=== PATIENT | female | born 1960 | race Caucasian/White ===

== ENCOUNTER 2024-11-19 17:38 | Emergency (ER) | payer OTHER ==
[2024-11-19 18:08] VITALS: TEMP 97.7
[2024-11-19 18:27] LABS: BASOPHIL % 0.9 % (0.1-1.2); Basophil (Absolute #) 0.07 x10^3/uL (0.01-0.08); Eosinophil % 3.7 % (0.7-5.8); Eosinophil (Absolute #) 0.29 x10^3/uL (0.04-0.36); Hematocrit 40.3 % (34.1-44.9); Hemoglobin 13.2 g/dL (11.2-15.7); IMMATURE GRAN # 0.03 x10^3u/L (0.001-0.031); IMMATURE GRAN % 0.4 % (0.001-0.429); Lymphocyte (Absolute #) 1.91 x10^3/uL (1.18-3.74); Lymphocytes % 24.1 % (19.3-51.7); Mean Cell Volume 98.5 fL (79.4-94.8); Mean Corpuscular Hemoglobin 32.3 pg (25.6-32.2); Mean Corpuscular Hgb Concent. 32.8 g/dL (32.2-35.5); Mean Platelet Volume 10.9 fL (9.4-12.3); Monocyte (Absolute #) 0.64 x10^3/uL (0.24-0.86); Monocytes % 8.1 % (4.7-12.5); Neutrophil % 62.8 % (34.0-71.1); Platelet Count 226 x10^3/uL (182-369); Red Blood Count 4.09 x10^6/uL (3.93-5.22); Red Cell Distribution Width 14.8 % (11.7-14.4); White Blood Count 7.9 x10^3/uL (3.98-10.04)
--- NOTE | 2024-11-19 18:27 | ERPHSYRPT ---
<LUCERO COUGHLIN. - Last Filed: 11/19/24 18:49> - History of Present Illness Time Seen by Provider: 11/19/24 18:00 Historian: patient Exam Limitations: no limitations Patient Subjective Stated Complaint: C/O "burning in my chest" all day today. Radiates into left shoulder at times. Denies N/V. Can't rate pain at this time. Patient can't remember what she was doing at the time of the initial start of her pain. Triage Nursing Assessment: Patient ambulated back to ER. She is alert and oriented. No SOB. HUERTAS WNL. Edema is present to BLE. Physician History: Patient's had burning in her left chest. Has been going on for about 3 days. She does not have any shortness of breath. She does not have any classic chest pain. She says that the pain goes to her left shoulder. She does have a cardiovascular history as well as a family history for cardiovascular disease.She has risk factors for coronary vascular disease. It does not seem that she is dyspneic. She does not really havePleuritic type pain. Taking a deep breath does not make it worse. Movement of the left arm in certain positions and palpation in the left anterior chest wall replicates the pain. She does not have dyspnea. She does not seem to have PE symptoms. Timing/Duration: day(s) (3) Quality: aching, burning Aspirin Treatment Today: no aspirin today Allergies/Adverse Reactions: amlodipine [From Norvasc] Allergy (Verified 11/19/24 17:53) amoxicillin Allergy (Verified 11/19/24 17:53) cephalexin [From Keflex] Allergy (Verified 11/19/24 17:53) Penicillins Allergy (Verified 11/19/24 17:53) sulfamethoxazole [From Bactrim] Allergy (Verified 11/19/24 17:53) trimethoprim [From Bactrim] Allergy (Verified 11/19/24 17:53) Home Medications: Aspirin EC 325 mg [Ecotrin 325 MG] 325 mg PO DAILY 11/19/24 [History] Carvedilol 3.125 mg [Coreg 3.125 MG] 3.125 mg PO BID 11/19/24 [History] Lisinopril 10 mg [Zestril 10 MG] 10 mg PO BID 11/19/24 [History] Hx Tetanus, Diphtheria Vaccination/Date Given: Yes Hx Influenza Vaccination/Date Given: Yes Immunizations Up to Date: Yes Travel Risk - International Travel Have you traveled outside of the country in past 3 weeks: No - Emerging Infectious Disease Are you exhibiting symptoms associated with any current EIDs: No - Review of Systems Constitutional: No Symptoms Eyes: No Symptoms Ears, Nose, & Throat: No Symptoms Respiratory: No Symptoms Abdominal/Gastrointestinal: No Symptoms Genitourinary Symptoms: No Symptoms Psychological: No Symptoms All Other Systems: Reviewed and Negative - Past Medical History Pertinent Past Medical History: Yes Cardiac History: Hypertension, Myocardial Infarction ([place]) 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 - Past Surgical History Past Surgical History: Yes Gastrointestinal: Cholecystectomy, Hemorrhoidectomy Female Surgical History: Tubal Ligation Other Surgical History: skull, tendonitis - Social History Smoking Status: Current every day smoker Drug Use: none - Social Determinants of Health Will the patient participate in the screening: Declined to provide - Physical Exam General Appearance: no apparent distress Eye Exam: PERRL/EOMI Respiratory Exam: chest tenderness (Left upper sternal), airway intact, other (Diminished breath sounds left mid chest), No respiratory distress Cardiovascular Exam: regular rate/rhythm, normal heart sounds Gastrointestinal/Abdomen Exam: soft, normal bowel sounds, No tenderness, No distention Back Exam: normal inspection, normal range of motion Extremity Exam: normal inspection, normal range of motion Neurologic Exam: alert, oriented x 3, cooperative, engineering specialist technician II-XII nml as tested Skin Exam: normal color, warm, dry SpO2: 98 - Course Nursing assessment & vital signs reviewed: Yes EKG Interpreted by Me: RATE, NORMAL AXIS, NORMAL INTERVALS, NORMAL QRS - Progress Progress: unchanged Air Movement: good Progress Note: I am going to do a cardiac workup on this patient although I think is musculoskeletal chest pain. She does not have any of the signs or symptoms of a pulmonary embolism. She is not tachycardic no respiratory distress. I am going to turn the patient over to Dr. Foreman she is coming on now. I have started a cardiac workup. Her EKG was done as interpreted by me normal sinus rhythm no ST or T changes and normal axis. 11/19/24 18:38 - Departure Departure Disposition: Home Clinical Impression: Chest wall pain, Mass of left lung, Infiltrate noted on imaging study Condition: Stable Critical Care Time: No Referrals: MIRTHA BECKFORD [Primary Care Provider, UNKNOWN] - Follow up/PCP as directed Instructions: Atypical Chest Pain, Pulmonary nodule, Chest Pain (DC) Additional Instructions: There is a lung mass or infiltrate which need further workup probably by CT scan with your Dr. - We will start z albina as discussed just in case there is infection or pneumonia. As discussed, this may or may not be a cuse for your symptoms and you have cardiac risk factors especially with prior heart attack, and even though EKG and troponin and D -dimer were negative, there still could be a cardiac condition evolving with a potential for serious complications and even so additional monitoring and work up are indicated for this as well. Return or call 911 meantime if Chest pain, short of breath, dizziness, or any other concerns. Prescriptions: Azithromycin 250 mg [Zithromax 250 MG TABLET] 250 mg PO ZPACK #6 tablet <JANE QURESHI - Last Filed: 11/19/24 20:32> - History of Present Illness Associated Symptoms: cough, No fever Prior Chest Pain/Cardiac Workup: heart attack Aspirin Treatment Today: 325 mg x 1, provided at home - Nursing Vital Signs Nursing Vital Signs: Initial Vital Signs Pulse Rate 65 11/19/24 17:53 Respiratory Rate 16 11/19/24 17:53 Blood Pressure 181/96 11/19/24 17:53 O2 Sat by Pulse Oximetry 98 11/19/24 17:53 Pain Scale Pain Intensity 0 - Radiology Exams Chest X-ray Interpretation: Interpreted by me, Infiltrates (left lung infiltrate or mass) Ordered Tests: Active Orders 24 hr Category Date Time Status EKG-ER Only STAT Care 11/19/24 18:05 Active CHEST 1 VIEW (PORTABLE) Stat Exams 11/19/24 18:06 Taken BLOOD CULTURE Stat Lab 11/19/24 18:06 Received CBC W DIFF Stat Lab 11/19/24 18:23 Completed CMP Stat Lab 11/19/24 18:23 Completed D-DIMER QUANTITATIVE Stat Lab 11/19/24 18:23 Completed Lactic Acid Stat Lab 11/19/24 18:05 Completed PROCALCITONIN Stat Lab 11/19/24 18:23 Completed TROPONIN Q4H Lab 11/19/24 18:23 Completed TROPONIN Q4H Lab 11/19/24 22:15 Ordered TROPONIN Q4H Lab 11/20/24 02:15 Ordered Lab/Rad Data: Laboratory Result Diagrams 11/19/24 18:23 11/19/24 18:23 Laboratory Results 11/19/24 11/19/24 11/19/24 Range/Units 18:23 18:23 18:23 WBC (3.98-10.04) x10^3/uL RBC (3.93-5.22) x10^6/uL Hgb (11.2-15.7) g/dL Hct (34.1-44.9) % MCV (79.4-94.8) fL MCH (25.6-32.2) pg MCHC (32.2-35.5) g/dL RDW (11.7-14.4) % Plt Count (182-369) x10^3/uL MPV (9.4-12.3) fL Gran % (34.0-71.1) % Immature Gran % (Auto) (0.001-0.429) % Nucleat RBC Rel Count (0.00-0.2) % Eos # (Auto) (0.04-0.36) x10^3/uL Immature Gran # (Auto) (0.001-0.031) x10^3u/L Absolute Lymphs (auto) (1.18-3.74) x10^3/uL Absolute Monos (auto) (0.24-0.86) x10^3/uL Absolute Nucleated RBC (0.00-0.012) x10^3u/L Lymphocytes % (19.3-51.7) % Monocytes % (4.7-12.5) % Eosinophils % (0.7-5.8) % Basophils % (0.1-1.2) % Absolute Granulocytes (1.56-6.13) x10^3/uL Basophils # (0.01-0.08) x10^3/uL D-Dimer < 0.19 (0.0-0.50) mg/L Sodium (135-145) mmol/L Potassium (3.5-5.1) mmol/L Chloride (98-107) mmol/L Carbon Dioxide (22-30) mmol/L Anion Gap (5-15) MEQ/L BUN (7-17) mg/dL Creatinine (0.52-1.04) mg/dL Estimated GFR ML/MIN Glucose (74-106) mg/dL Lactic Acid (0.4-2.0) Calcium (8.4-10.2) mg/dL Total Bilirubin (0.2-1.3) mg/dL AST (14-36) U/L ALT (0-35) U/L Alkaline Phosphatase (38-126) U/L Troponin I < 0.012 (0.000-0.033) ng/mL Serum Total Protein (6.3-8.2) g/dL Albumin (3.5-5.0) g/dL Procalcitonin 0.034 (0.030-0.080) ng/mL 11/19/24 11/19/24 11/19/24 Range/Units 18:23 18:23 18:05 WBC 7.9 (3.98-10.04) x10^3/uL RBC 4.09 (3.93-5.22) x10^6/uL Hgb 13.2 (11.2-15.7) g/dL Hct 40.3 (34.1-44.9) % MCV 98.5 H (79.4-94.8) fL MCH 32.3 H (25.6-32.2) pg MCHC 32.8 (32.2-35.5) g/dL RDW 14.8 H (11.7-14.4) % Plt Count 226 (182-369) x10^3/uL MPV 10.9 (9.4-12.3) fL Gran % 62.8 (34.0-71.1) % Immature Gran % (Auto) 0.4 (0.001-0.429) % Nucleat RBC Rel Count 0.0 (0.00-0.2) % Eos # (Auto) 0.29 (0.04-0.36) x10^3/uL Immature Gran # (Auto) 0.03 (0.001-0.031) x10^3u/L Absolute Lymphs (auto) 1.91 (1.18-3.74) x10^3/uL Absolute Monos (auto) 0.64 (0.24-0.86) x10^3/uL Absolute Nucleated RBC 0.00 (0.00-0.012) x10^3u/L Lymphocytes % 24.1 (19.3-51.7) % Monocytes % 8.1 (4.7-12.5) % Eosinophils % 3.7 (0.7-5.8) % Basophils % 0.9 (0.1-1.2) % Absolute Granulocytes 5.00 (1.56-6.13) x10^3/uL Basophils # 0.07 (0.01-0.08) x10^3/uL D-Dimer (0.0-0.50) mg/L Sodium 143 (135-145) mmol/L Potassium 4.1 (3.5-5.1) mmol/L Chloride 106 (98-107) mmol/L Carbon Dioxide 30 (22-30) mmol/L Anion Gap 11.2 (5-15) MEQ/L BUN 17 (7-17) mg/dL Creatinine 0.96 (0.52-1.04) mg/dL Estimated GFR 66.1 ML/MIN Glucose 97 (74-106) mg/dL Lactic Acid 0.7 (0.4-2.0) Calcium 9.2 (8.4-10.2) mg/dL Total Bilirubin 0.70 (0.2-1.3) mg/dL AST 31 (14-36) U/L ALT 22 (0-35) U/L Alkaline Phosphatase 132 H (38-126) U/L Troponin I (0.000-0.033) ng/mL Serum Total Protein 6.0 L (6.3-8.2) g/dL Albumin 3.8 (3.5-5.0) g/dL Procalcitonin (0.030-0.080) ng/mL - Progress Progress: improved, re-examined Air Movement: good Progress Note: 11/19/24 19:31 Pt was taken over at change of shift from Dr. Coughlin , after discussion of pending labs and findings so far and introduction to pt and family. . She clarifies that the pain is aggraved by moving her left arm, but no known trauma and going on a few days. She had prior MO with atypical symptoms to right side. After discussion of risks/benefits including that even with normal ECG and negative Trop and neg D dimer, and the CXR findings in the area which might be causing the symptoms, she still could be having a cardiac or other serious event which could result in or serious complications. I advised her therefore to allow us to do ALS transport to regional or admit her for obs and more EKGs and Trops here. She wishes to decline, and instead to f/u PMD/Cardio [facility] for furhter cardiac eval and eval of the left lung findings on CXR including CT as advised ( she prefers in her own health system rather than ours). She and voice understanding and have the capacity to make this choice. 11/19/24 19:51 11/19/24 20:10 pt denies any actual pain so does not fit pain eval (0/10 level) so no NTG given. has taken asa already today. 11/19/24 20:17 Pt does not wish to wait for the CXR rad reading and we will try to call her when the reading comes in. She currently feels well and has no symptoms and has the capcity to make this choice for outpt f/u rather than further eval / obs in ER or hospital tonight and declines AB at this time as well - no fever or sobreath. 11/19/24 20:20 Blood Culture(s) Obtained: No Antibiotics given: No Counseled pt/family regarding: lab results, diagnosis, need for follow-up, rad results Medical Desision Making - Independent Historian Additional History obtained from: Family - Discussion of managment Reviewed:: Test results, Need for additional workup - Diagnostic Testing Diagnostic test were ordered, analyzed, and reviewed by me: Yes Radiological Interpretation: Interpreted by me - Risk of complications The pt has a high risk of morbidity or mortality based on: Decision regarding hospitilization or escalation of hosp level of care - Departure Departure Disposition: Home Critical Care Time: No
[2024-11-19 18:48] LABS: ALBUMIN 3.8 g/dL (3.5-5.0); ANION GAP 11.2 MEQ/L (5-15); BILIRUBIN,TOTAL 0.7 mg/dL (0.2-1.3); Calcium 9.2 mg/dL (8.4-10.2); Creatinine 1 0.96 mg/dL (0.52-1.04); EST GLOMERULAR FILTRATION RATE 66.1 ML/MIN; Potassium 4.1 mmol/L (3.5-5.1)
[2024-11-19 20:04] VITALS: BP 143/78; PULSE 63; RESP 15; O2SAT 97
[2024-11-19] MEDS ORDERED: Zithromax 250 MG TABLET ONE (20:38)
[2024-11-19] MEDS: Zithromax 250 MG TABLET PO ONE (20:40)
--- NOTE | 2024-11-19 21:46 | XRAY ---
CLINICAL HISTORY: chest pain COMPARISON: None. TECHNIQUE: An X-ray image of the chest is obtained in AP projection. FINDINGS: Pulmonary Parenchyma: A peripherally based, ill-defined opacity involving the left middle and lower zones, with hyperdense peripherally not separately visualized from the ribs. Obscuration of the left costophrenic angle pleural thickening is likely versus minimal to mild pleural effusion. Heart and Mediastinum: Heart size and shape are normal. No mediastinal widening or masses. Prominent bilateral hilum, a few calcific densities/small calcific nodules in the left hilar and perihilar region Bony Thorax: Bony thorax appears intact without fractures or deformities. Soft Tissues: Soft tissues overlying the chest wall are unremarkable. IMPRESSION: 1. A peripherally based, ill-defined opacity involving the left middle and lower zones, with hyperdense peripherally not separately visualized from the ribs, could be a area pleural calcifications/ pleural plaques versus consolidation. However CT scan chest is advised for further evaluation. 2. Obscuration of the left costophrenic angle pleural thickening is likely versus minimal to mild pleural effusion. Electronically Signed by: Quique Razo MD. (11/19/2024 21:40:58 EDT)
== END 2024-11-19 20:58 | disposition home or self-care (01) ==
LOC: ED 17:38
DX: R07.89 Other chest pain (principal); R91.8 Other nonspecific abnormal finding of lung field; I10 Essential (primary) hypertension; Z79.899 Other long term (current) drug therapy; Z72.0 Tobacco use
CPT/HCPCS: 36415; 71045; 80053; 83605; 84145; 84484; 85025; 85379; 87040; 93005; 99284; 99285; A9270-GY